=== PATIENT | male | born 1985 | race African-American/Black ===

== ENCOUNTER → 2016-12-23 | Emergency (ER) | payer OTHER ==
[~2016-12-23] VITALS: Ht 172.7 cm; Wt 79.4 kg
[~2016-12-23] MED LIST: Bacitracin Oint UD TOPIC ONE; CEPHALEXIN500 MG ORAL; HM DOUBLE ANT28.4 G1 TP; TdaP Vaccine 0.5ml Syr IM ONE
[2016-12-23 13:12] VITALS: BP 112/74
--- NOTE | 2016-12-23 14:05 | Emergency Room Report ---
History of Present Illness General Chief Complaint: Laceration Source: Patient Present Illness HPI 31 YO Male presents to the ED c/o laceration to Right palm x 1 day. sustained by metal box maker at home, pt. denies taking blood thinning medications. not UTD with tetanus. Denies numbness tingling or loss of sensation or gross motor movements of the extremities, incontinence of bowel or bladder. Denies CP, Palpitations, LOC, AMS, dizziness, Changes in Vision, Sensation, paresthesias, or a sudden severe headache. Allergies: Coded Allergies: No Known Allergies (Unverified , 12/23/16) Patient History Past Medical History: see triage record Past Surgical History: none Pertinent Family History: none Immunizations: UTD Reviewed Nursing Documentation: PMH: Agreed, PSxH: Agreed Nursing Documentation-PMH Past Medical History: No Stated History Review of Systems All Other Systems: negative except mentioned in HPI Physical Exam Vital Signs Date Time Temp Pulse Resp B/P Pulse Ox O2 Delivery O2 Flow Rate FiO2 12/23/16 13:12 98.2 18 112/74 100 Room Air 12/23/16 13:12 90 Sp02 EP Interpretation: reviewed, normal General Appearance: no apparent distress, alert, GCS 15, non-toxic Head: normocephalic, atraumatic Eyes: bilateral eye PERRL, bilateral eye normal inspection ENT: hearing grossly normal, normal pharynx, no angioedema, normal voice Neck: full range of motion, supple/symm/no masses Respiratory: lungs clear, normal breath sounds, speaking full sentences Cardiovascular #1: regular rate, rhythm, no edema, normal capillary refill Musculoskeletal: back normal, gait/station normal, normal range of motion, non- tender Neurologic: alert, oriented x3, responsive, motor strength/tone normal, sensory intact, speech normal Psychiatric: judgement/insight normal, memory normal, mood/affect normal, no suicidal/homicidal ideation Skin: normal color, no rash, warm/dry, well hydrated, laceration - 1.5cm Laceration to the right palm, no evidence of FB Lymphatic: no adenopathy Procedures Laceration/Wound Repair Laceration/Wound Repair : Consent: Verbal Wound Location: upper extremity - right palm Wound's Depth, Shape: superficial Wound Length (cm): 1 Wound Explored: clean Irrigated w/ Saline (ccs): 30 Anesthesia: 1% Lidocaine Volume Anesthetic (ccs): 3 Wound Repaired With: sutures Suture Size/Type: 5:0 Number of Sutures: 2 Sterile Dressing Applied?: Yes Splint Applied?: No Sling Applied?: Yes Patient Tolerated: Well Complications: None Medical Decision Making PA Attestation Dr. Mattson is my supervising Physician whom patient management has been discussed with. Diagnostic Impression: Primary Impression: Laceration ER Course Pt. presents to the ED c/o laceration to Right palm x 1 day. sustained by metal box maker at home, pt. denies taking blood thinning medications. not UTD with tetanus. Ddx considered but are not limited to laceration, tendon injury, cellulitis, amputation Vital signs: are WNL, pt. is afebrile H&PE are most consistent with: linear right palm laceration approx 1.5 cm in length ORDERS: none required at this time, the diagnosis is clinical ED INTERVENTIONS: -Tetanus vaccine was administered as pt. vaccination status was unknown. - The wound was copiously irrigated with normal saline, and explored for foreign body for which no FB was found. - pt. is anesthetized with 1%lidocaine 3cc's were used. - The wound was approximated and closed using 2 interrupted 5.0 Prolene sutures. -Bacitracin and sterile dressing is applied by catalogue illustrator. Discussed with patient: That we make every effort to approximate the laceration as best as we can so that scarring will be as cosmetically pleasing as possible with our limited cosmetic skill set in the Emergency dept. Regardless of our best efforts there will be scarring after laceration repair. The extent of scarring is unknown at this time. DISCHARGE: At this time pt. is stable for d/c to home. Will provide printed patient care instructions, and any necessary prescriptions. Care plan and follow up instructions have been discussed with the patient prior to discharge. Last Vital Signs Date Time Temp Pulse Resp B/P Pulse Ox O2 Delivery O2 Flow Rate FiO2 12/23/16 13:12 98.2 90 18 112/74 100 Room Air Disposition: HOME, SELF-CARE Condition: Stable Scripts Bacitracin Zinc/Polymyx B Sulf (HM DOUBLE ANTIBIOTIC OINTMENT) 28.4 Gm Oint...g. 1 APPLIC TP BID, #28.4 GM Prov: Tamika Richards 12/23/16 Cephalexin* (KEFLEX*) 500 Mg Capsule 500 MG ORAL EVERY 12 HOURS for 7 Days, #14 CAP 0 Refills Prov: Tamika Richards 12/23/16 Patient Instructions: Laceration Care, Adult Additional Instructions: Take medications as directed. Follow up with PCP in 3-5 days Return sooner to ED if new symptoms occur, or current symptoms become worse. * Suture removal in 7-10 days * do not submerge hand into water - Please note that this Emergency Department Report was dictated using [employer] Player[employer] process modeler technology software, occasionally this can lead to erroneous entry secondary to interpretation by the dictation equipment. Tamika Richards Dec 23, 2016 14:05
== END | disposition home or self-care (01) ==
LOC: EMR 14:08
DX: S61.411A Laceration without foreign body of right hand, initial encounter (principal); W27.5XXA Contact with paper-cutter, initial encounter; Y92.009 Unspecified place in unspecified non-institutional (private) residence as the place of occurrence of the external cause; Z23 Encounter for immunization
CPT/HCPCS: 12001; 90471; 90715; 99284; Z7502

== ENCOUNTER 2019-06-15 16:18 | Emergency (ER) | payer MEDICAID, OTHER ==
[~2019-06-15] VITALS: Ht 175.3 cm; Wt 78.5 kg
[~2019-06-15 16:18] MED LIST changes: -Bacitracin Oint UD TOPIC ONE; -TdaP Vaccine 0.5ml Syr IM ONE
--- NOTE | 2019-06-15 16:30 | NUR ---
ED Nurse Note: PT WALKED IN TO ER TODAY FROM HOME. AOX4. PT C/O LEFT AHND AND RIGHT ANKLE PAIN AFTER FALL WHILE PLAYING SOCCER YESTERDAY. PT DENIES HEAD TRAUMA OR LOC. FULL ROM OF ALL EXTREMITIES BUT WITH PAIN. NO OBVIOUS INJURIES. PT DENIES NUMBNESS OR TINGLING, CAP REFILL <2 SECONDS, CIRCULATION AND SENSATION INTACT. SKIN CLEAN, DRY, AND INTACT.
[2019-06-15 16:33] VITALS: BP 122/74
--- NOTE | 2019-06-15 16:42 | NUR ---
ED Nurse Note: XRAY AT BEDSIDE.
--- NOTE | 2019-06-15 17:15 | Diagnostic Imaging Report ---
Indication: Left wrist pain Findings: 3 views of the left wrist were obtained. No acute fractures, malalignment, erosions or periostitis are identified. Soft tissues are unremarkable. Impression: No acute findings.
--- NOTE | 2019-06-15 17:16 | Diagnostic Imaging Report ---
Indication: Right ankle pain Comparison: None Findings: 2 views of the right ankle obtained. No acute fracture, malalignment, periostitis, or osteochondral defects are identified. Soft tissues are unremarkable. Os trigonum noted. Impression: No acute findings on this examination
--- NOTE | 2019-06-15 17:16 | Diagnostic Imaging Report ---
Indication: Foot Pain Comparison: None Findings: 3 views of the right foot were obtained. No acute fractures, malalignment, erosions or periostitis are identified. Impression: No acute findings.
--- NOTE | 2019-06-15 17:17 | Diagnostic Imaging Report ---
Indication: left hand pain. Comparison: None Findings: 3 views of the left hand were obtained. Normal alignment is demonstrated. No acute fractures, erosions, or periosteal reaction are seen. Soft tissues are unremarkable. Impression: No acute findings.
--- NOTE | 2019-06-15 17:17 | Emergency Room Report ---
History of Present Illness General Chief Complaint: Upper Extremity Injury Source: Patient Present Illness HPI 34-year-old male presents with fall, while playing soccer yesterday, he endorses right foot pain, and left hand pain aching in nature aggravated by movement alleviated by rest severity is moderate, symptoms are intermittent patient presents for evaluation. Allergies: Coded Allergies: No Known Allergies (Unverified , 12/23/16) Patient History Past Medical History: see triage record Reviewed Nursing Documentation: PMH: Agreed; PSxH: Agreed Nursing Documentation-PMH Past Medical History: No Stated History Review of Systems All Other Systems: negative except mentioned in HPI Physical Exam Vital Signs Date Time Temp Pulse Resp B/P (MAP) Pulse Ox O2 Delivery O2 Flow Rate FiO2 06/15/19 16:21 98.2 90 19 116/72 (87) 96 Room Air Sp02 EP Interpretation: reviewed, normal General Appearance: well appearing, no apparent distress, alert Head: normocephalic, atraumatic Eyes: bilateral eye PERRL, bilateral eye EOMI ENT: uvula midline, moist mucus membranes Neck: supple, thyroid normal, supple/symm/no masses Respiratory: lungs clear, no respiratory distress, no retraction, no accessory muscle use Cardiovascular #1: normal peripheral pulses, regular rate, rhythm, no edema, no gallop, no murmur Gastrointestinal: non tender, soft, no guarding, no rebound Musculoskeletal: other - Left foot 2+ PT DP, fires EHL 5 out of 5 plantar dorsiflexion, tenderness to palpation navicular midfoot, right hand: 2+ radial pulses cap refill less than 3 seconds, radial median ulnar nerve intact, tenderness to palpation base of the second metacarpal Neurologic: alert, oriented x3 Psychiatric: mood/affect normal Skin: no rash, warm/dry Procedures Splinting Splinting : Consent: Verbal Location: Right Foot Hand-Made Type: plaster Splint: poserior short Pre-Proc Neuro Vasc Exam: normal Post-Proc Neuro Vasc Exam: normal Patient Tolerated: Well Complications: None Medical Decision Making Diagnostic Impression: Primary Impression: Foot fracture, right Qualified Codes: S92.901A - Unspecified fracture of right foot, initial encounter for closed fracture Additional Impression: Sprain of hand, left Qualified Codes: S63.92XA - Sprain of unspecified part of left wrist and hand , initial encounter ER Course Patient with possible fracture of the right foot, will place patient in a splint , patient is neurovascularly intact, disposition home with return precautions, patient also with a left hand strain Preliminary Findings Only See Final Report For Complete Findings FILM LEFT WRIST: LEFT WRIST, 3 Views INDICATION: pain COMPARISON: none FINDINGS: 3 views of the left wrist are obtained. Bony structures are intact. Bone mineralization and alignment are within normal limits. Joint spaces are preserved. Soft tissues are within normal limits. IMPRESSION: No acute fracture or dislocation identified. Numbers: [id number] Preliminary Findings Only See Final Report For Complete Findings FILM LEFT HAND: LEFT HAND, 3 Views INDICATION: pain COMPARISON: none FINDINGS: 3 views of the left hand are obtained. Bony structures are intact. Bone mineralization is within normal limits. Joint spaces are preserved. Soft tissues within normal limits. No radio-opaque foreign bodies seen. IMPRESSION: No acute fracture. Other X-Ray Diagnostic Results Other X-Ray Diagnostic Results : X-Ray ordered: Right foot # of Views/Limited Vs Complete: 3 View Indication: Pain EP Interpretation: Yes Interpretation: other - Fracture of the intermediate cuneiform noted Impression: Other Electronically Signed by: Coleman Brandt MD Last Vital Signs Date Time Temp Pulse Resp B/P (MAP) Pulse Ox O2 Delivery O2 Flow Rate FiO2 06/15/19 16:33 98.4 82 16 122/74 98 Room Air Disposition: HOME, SELF-CARE Condition: Stable Scripts Naproxen* (NAPROSYN*) 250 Mg Tablet 250 MG ORAL BID PRN for For Pain, #20 TAB 0 Refills Prov: Coleman Brandt MD 06/15/19 Referrals: [facility] Departure Forms: Return to Work Return to Work Date: Jun 23, 2019 Work Restrictions: No Heavy Lifting Patient Instructions: Lisfranc's Fracture-Dislocation and Mid-Foot Sprain With [facility], Wrist Sprain With [facility] Additional Instructions: The patient was provided with discharge instructions, notified to follow-up with a primary care doctor and or specialist in the next 24-48 hours, and to return to the ED if they have worsening of their symptoms. Please note that this report is being documented using DRAGON technology. This can lead to erroneous entry secondary to incorrect interpretation by the dictating instrument. Coleman Brandt MD Jun 15, 2019 17:17
--- NOTE | 2019-06-15 17:20 | NUR ---
ED Nurse Note: EMT AT BEDSIDE FOR SPLINTING OF RIGHT ANKLE.
--- NOTE | 2019-06-15 17:30 | NUR ---
ED Nurse Note: PT PROVIDED WITH CRUTCHES AND EDUCATED ON PROPER USE OF ASSISTIVE DEVICE. PT ABLE TO DEMONSTRATE BACK STEADY AMBULATION WITH PROPER USE OF ASSISTIVE DEVICE.
[2019-06-15] MEDS ORDERED: NAPROXEN250 MG ORAL (17:31)
[2019-06-15 17:53] VITALS: BP 116/72
--- NOTE | 2019-06-15 17:54 | NUR ---
ED Nurse Note: PT LAYING PEACEFULLY IN BED IN NAD. AOX4. PRESCRIPTION AND DISCHARGE PAPERWORK EXPLAINED TO PT. PT VERBALIZES UNDERSTANDING AND ALL QUESTIONS ANSWERED. PRESCRIPTION AND DISCHARGE PAPERWORK GIVEN TO PT AND ID WRISTBAND REMOVED. PT WALKED OUT OF ER WITH STEADY GAIT AND PROPER USE OF ASSISTIVE DEVICE AND ALL BELONGINGS. VSS.
== END 2019-06-15 17:54 | disposition home or self-care (01) ==
LOC: EMR 16:48
DX: S92.901A Unspecified fracture of right foot, initial encounter for closed fracture (principal); S63.92XA Sprain of unspecified part of left wrist and hand, initial encounter; Y93.66 Activity, soccer
CPT/HCPCS: 29515; 73110; 73130; 73600; 73630; Z7502; 99284